=== PATIENT | male | born 1985 | race Caucasian/White ===

== ENCOUNTER 2024-11-13 15:16 | Emergency (ER) | payer MEDICAID ==
[~2024-11-13] VITALS: Ht 177.8 cm; Wt 107.0 kg
[2024-11-13 15:58] LABS: BASOPHILS # (AUTO) 0.1 K/uL (0.0-0.2); EOSINOPHILS # (AUTO) 0.2 K/uL (0.0-0.7); EOSINOPHILS % (AUTO) 1.7 % (0.0-6.0); WHITE BLOOD COUNT (AUTO) 8.7 K/uL (4.3-11.0)
[2024-11-13 16:01] LABS: BASOPHILS % (AUTO) 1.1 % (0.0-2.0); HEMATOCRIT 54 % (39-51); HEMOGLOBIN 18.3 g/dL (13.5-17.5); LYMPHOCYTES # (AUTO) 2.4 K/uL (0.8-4.8); LYMPHOCYTES % (AUTO) 27.5 % (20.0-44.0); MEAN CORPUSCULAR HEMOGLOBIN 29 PG (26.0-33.0); MEAN CORPUSCULAR HGB CONC 34 g/dl (31.0-36.0); MEAN CORPUSCULAR VOLUME 85 fL (80-96); MONOCYTES % (AUTO) 11.9 % (2.0-12.0); NEUTROPHILS # (AUTO) 5.1 K/uL (1.8-8.9); NEUTROPHILS % (AUTO) 57.8 % (43.0-81.0); PLATELET COUNT (AUTO) 362 K/uL (150-450); RED BLOOD CELL COUNT(AUTO) 6.33 MIL/uL (4.5-6.0); RED CELL DISTRIBUTION WIDTH 15.6 % (11.5-15.0)
[2024-11-13] MEDS ORDERED: hydrALAZINE HCL IV 20 MG VIAL ONE (16:01)
[2024-11-13] MEDS: hydrALAZINE HCL IV 20 MG VIAL IV ONE (16:03)
[2024-11-13 16:06] LABS: CALCIUM, SERUM 9.2 mg/dL (8.5-10.1); CARBON DIOXIDE 32 mmol/L (21-32); CHLORIDE 100 mmol/L (98-107); GLUCOSE 89 mg/dL (74-106); POTASSIUM 4.3 mmol/L (3.5-5.1); SODIUM SERUM 135 mmol/L (136-145); UREA NITROGEN, BLOOD 11 mg/dL (7-18)
[2024-11-13 19:03] VITALS: BP 164/112; TEMP 98.1; O2SAT 96
== END 2024-11-13 18:45 | disposition home or self-care (01) ==
LOC: ER 15:19
DX: R07.89 Other chest pain (principal); I10 Essential (primary) hypertension; Z60.2 Problems related to living alone
CPT/HCPCS: 99285; 96374; 71045; 93005; 85025; 80048; 85378; 36415; 84484 ×2; J0360; J7040